=== PATIENT | male | born 1970 | race Two or more races ===

== ENCOUNTER 2023-03-16 06:50 | Emergency (ER) | payer BC ==
[~2023-03-16] VITALS: Ht 182.9 cm; Wt 104.3 kg
[2023-03-16 07:49] LABS: BASOPHILS % (AUTO) 0.1 % (0.0-2.0); EOSINOPHILS # (AUTO) 0.1 K/uL (0.0-0.7); EOSINOPHILS % (AUTO) 0.9 % (0.0-6.0); HEMATOCRIT 47 % (39-51); HEMOGLOBIN 15.7 g/dL (13.5-17.5); LYMPHOCYTES # (AUTO) 1.5 K/uL (0.8-4.8); MEAN CORPUSCULAR HEMOGLOBIN 27 PG (26.0-33.0); MEAN CORPUSCULAR HGB CONC 34 g/dl (31.0-36.0); MEAN CORPUSCULAR VOLUME 80 fL (80-96); MONOCYTES # (AUTO) 0.9 K/uL (0.1-1.30); MONOCYTES % (AUTO) 10.4 % (2.0-12.0); NEUTROPHILS % (AUTO) 70.6 % (43.0-81.0); PLATELET COUNT (AUTO) 185 K/uL (150-450); RED CELL DISTRIBUTION WIDTH 14.7 % (11.5-15.0); WHITE BLOOD COUNT (AUTO) 8.5 K/uL (4.3-11.0)
[2023-03-16 08:08] LABS: CALCIUM, SERUM 9.2 mg/dL (8.5-10.1); POTASSIUM 4.3 mmol/L (3.5-5.1)
[2023-03-16 09:41] VITALS: BP 143/94; TEMP 97.9; O2SAT 98
== END 2023-03-16 09:42 | disposition home or self-care (01) ==
LOC: ER 06:55
DX: U07.1 COVID-19 (principal); R05.9 Cough, unspecified; Z91.013 Allergy to seafood
CPT/HCPCS: 36415; 71045-TC; 80048-TC; 85025-TC